=== PATIENT | male | born 1970 | race Hispanic/Latino ===

== ENCOUNTER 2018-09-08 15:40 | Emergency (ER) | payer OTHER ==
[~2018-09-08] VITALS: Ht 167.6 cm; Wt 83.9 kg
[2018-09-08] MEDS ORDERED: DECADRON IM STA (16:04)
[2018-09-08 16:06] VITALS: BP 151/93
--- NOTE | 2018-09-08 16:08 | ER.PDOC ---
General Chief Complaint: General Complaint Stated Complaint: RIGHT FOOT GOUT Time seen by MD: 16:04 Source: patient Exam Limitations: no limitations History of Present Illness Initial Comments Pt with acute pain on right ankle that started last night worse today, h/o gout Onset: yesterday Recent Injury: No Where: home Severity: severe Exacerbated By: walking movement Relieved By: nothing Past Medical History Medical History: no pertinent history Surgical History: no surgical history Social History Smoking: greater than 1 pack/day Alcohol Use: none Drug Use: none Review of Systems Musculoskeletal: see HPI All Other Systems: Reviewed and Negative Physical Exam General Appearance: Alert, No Apparent Distress Lower Extremity: tenderness, swelling (medial right malleolus) Joint Exam: antalgic gait Vascular: no vascular compromise, pulses full/equal Neuro/Psych: sensation nml, motor nml, oriented x3, CN's nml as tested, mood/affect nml Skin: warmth/erythema Back/Neck: nml inspection EENT: eyes inspection nml, ENT inspection nml, pharynx nml Respiratory: no resp distress, breath sounds nml CVS: reg rate & rhythm, heart sounds nml Abdomen: non-tender, no organomegaly, no bruit/mass Results/Orders Results/Orders Orders - DEEPIKA CARRERO MD Dexamethasone Sod Phosphate (Decadron) (09/08/18 16:04) Ketorolac Tromethamine (Toradol) (09/08/18 16:30) Colchicine (Colchicine) (09/08/18 16:30) Ketorolac Tromethamine (Toradol) (09/08/18 16:38) Dexamethasone Sod Phosphate (Decadron) (09/08/18 16:39) Colchicine (Colchicine) (09/08/18 16:42) Vital Signs Date Time Temp Pulse Resp B/P (MAP) Pulse Ox O2 Delivery O2 Flow Rate FiO2 09/08/18 17:01 91 20 09/08/18 16:06 98.6 92 18 151/93 (112) Room Air 98.6 09/08/18 16:01 98.6 92 15 98 Room Air 98.6 Administered Medications Medications (Trade) Dose Ordered Sig/Óscar Route PRN Reason Start Time Stop Time Status Last Admin Dose Admin Colchicine (Colchicine) 1.2 mg OT ONCE PO 09/08/18 16:30 09/08/18 16:31 DC 09/08/18 16:37 1.2 MG Dexamethasone Sodium Phosphate (Decadron) 8 mg STAT STAT IM 09/08/18 16:04 09/08/18 16:06 DC 09/08/18 16:36 8 MG Ketorolac Tromethamine (Toradol) 60 mg OT ONCE IM 09/08/18 16:30 09/08/18 16:31 DC 09/08/18 16:37 60 MG Departure Time of Disposition: 17:12 Disposition: 01 HOME, SELF-CARE Impression: Primary Impression: Gout attack Condition: Stable Patient Instructions: Gout, [id number] Referrals: PCP,UNKNOWN (PCP) PRIMARY CARE PROVIDER Duration or Time Spent with Pa: 15 DEEPIKA CARRERO MD Sep 08, 2018 16:08
[2018-09-08] MEDS ORDERED: TORADOL IM ONE (16:30)
[2018-09-08] MEDS ORDERED: COLCHICINE PO ONE ×2 (16:30→16:42)
[2018-09-08] MEDS ORDERED: TORADOL ONE (16:38)
[2018-09-08] MEDS ORDERED: DECADRON ONE (16:39)
[2018-09-08 17:12] VITALS: BP 152/95
[2018-09-08 17:39] VITALS: BP 152/95
== END 2018-09-08 17:30 | disposition home or self-care (01) ==
LOC: ER 15:40
DX: M10.9 Gout, unspecified (principal); F17.210 Nicotine dependence, cigarettes, uncomplicated
CPT/HCPCS: 96372; 99284; J1100; J1885